=== PATIENT | female | born 1945 | race Caucasian/White ===

== ENCOUNTER → 2021-12-26 | Outpatient (CLI) | payer OTHER ==
[~2021-12-26] MED LIST: ACET-3194 PO; AEC81 PO; CALC-1125 PO; OMEP20CA12 PO; SIMV40TA59 PO; TIMO.5OS OU; TRAM50TA4 PO; VIT1CAPS5 PO; VITA-164 PO
== END | disposition home or self-care (01) ==
LOC: RAH 12:53
PROVIDERS: ATTEND Internal Medicine
DX: M25.571 Pain in right ankle and joints of right foot (principal); M76.811 Anterior tibial syndrome, right leg; R93.6 Abnormal findings on diagnostic imaging of limbs
CPT/HCPCS: 73718; 73721

== ENCOUNTER 2024-06-30 11:42 | Emergency (ER) | payer OTHER ==
[~2024-06-30] VITALS: Ht 160 cm; Wt 70.3 kg
[~2024-06-30 11:42] MED LIST changes: +LEVO750T39 PO; -VITA-164 PO; +VITA-348 PO
[2024-06-30] MEDS ORDERED: LIDOCAINE HCL 1% 20 ML VIAL INJ SCH (12:30)
[2024-06-30] MEDS ORDERED: NEOMY SULF/BACITRA/POLYMYXIN B 1 EACH PACKET TP ONE (12:30)
[2024-06-30] MEDS ORDERED: CEPH500T PO (14:33)
[2024-06-30 15:09] VITALS: BP 127/87; PULSE 80; RESP 16; TEMP 97.8; O2SAT 98
== END 2024-06-30 15:36 | disposition home or self-care (01) ==
LOC: EDH 11:42
DX: S81.812A Laceration without foreign body, left lower leg, initial encounter (principal); Z88.0 Allergy status to penicillin; Z79.82 Long term (current) use of aspirin; Z79.2 Long term (current) use of antibiotics; Z79.899 Other long term (current) drug therapy; Z98.890 Other specified postprocedural states; Z85.3 Personal history of malignant neoplasm of breast; Z98.51 Tubal ligation status; Z90.49 Acquired absence of other specified parts of digestive tract; W22.8XXA Striking against or struck by other objects, initial encounter; Y93.89 Activity, other specified; Y92.89 Other specified places as the place of occurrence of the external cause; Y99.8 Other external cause status
CPT/HCPCS: 12002; 73590

== ENCOUNTER → 2025-05-30 | Outpatient (CLI) | payer OTHER ==
[~2025-05-30] MED LIST changes: -AEC81 PO; -CALC-1125 PO; +CALC1CAP22 PO; +CLOP-31 PO; +IOHEXOL-350 75 ML VIAL IV ONE; +LACT-356 PO; +LATA2.5D7 OP; +LETROZOLE PO; -LEVO750T39 PO; +METO25 PO; +PREG50CA64 PO; +ROSU10TA72 PO; -SIMV40TA59 PO; -TIMO.5OS OU; -TRAM50TA4 PO; +UBID100C45 PO; -VIT1CAPS5 PO; -VITA-348 PO; +VITA1CAP17 PO; +ZOLE5INF IV
--- NOTE | 2025-05-30 16:03 | HMCIMG ---
EXAM: CT Abdomen with IV contrast CLINICAL HISTORY: ABDO PAIN TECHNIQUE: Axial computed tomography images of the abdomen and pelvis with intravenous contrast. CONTRAST: with intravenous contrast. COMPARISON: None provided. FINDINGS: LUNG BASES: The lung bases appear clear. No pleural effusions are seen. LIVER: Unremarkable. GALLBLADDER AND BILE DUCTS: There appears to be mild gallbladder wall thickening. No significant pericholecystic edema or calcified gallstone PANCREAS: Unremarkable. SPLEEN: Unremarkable. ADRENAL GLANDS: Unremarkable. KIDNEYS, URETERS, AND BLADDER: The kidneys appear within normal limits. There is no hydronephrosis or hydroureter. No urinary calculi are seen. STOMACH AND BOWEL: Unremarkable appearance of the stomach and bowel. No evidence of bowel obstruction. No evidence suggesting enteritis or colitis. Small sliding hiatal hernia. Colonic diverticulosis without CT evidence of acute diverticulitis APPENDIX: The appendix is not clearly visible. There are no secondary signs of acute appendicitis PERITONEUM: No free fluid. No free air. LYMPH NODES: No lymphadenopathy is evident. VASCULATURE: No evidence of abdominal aortic aneurysm. BONES: No aggressive appearing osseous lesion. No acute osseous pathology evident. Small mesenteric fat containing ventral wall umbilical hernia IMPRESSION: 1. Mild gallbladder wall thickening without pericholecystic edema. Consider ultrasound the gallbladder for further evaluation 2. Small sliding hiatal hernia. 3. Small umbilical hernia. 4. Colonic diverticulosis without diverticulitis. /[place]
== END | disposition home or self-care (01) ==
LOC: RAH 08:10
PROVIDERS: ATTEND Internal Medicine Gastroenterology
DX: K57.30 Diverticulosis of large intestine without perforation or abscess without bleeding (principal); K44.9 Diaphragmatic hernia without obstruction or gangrene; K42.9 Umbilical hernia without obstruction or gangrene; K82.8 Other specified diseases of gallbladder; R10.9 Unspecified abdominal pain
CPT/HCPCS: 74160; Q9967

== ENCOUNTER → 2025-07-26 | Outpatient (CLI) | payer OTHER ==
[~2025-07-26] MED LIST changes: +GADOTERATE MEGLUMINE 10 MMOL/20 ML VIAL IV ONE; -IOHEXOL-350 75 ML VIAL IV ONE; -ROSU10TA72 PO; +ROSU10TA98 PO
--- NOTE | 2025-07-26 16:17 | HMCIMG ---
EXAM: MR Abdomen with and without Intravenous Contrast. CLINICAL HISTORY: ABD PAIN TECHNIQUE: Multisequence, multiplanar magnetic resonance images of the abdomen with and without intravenous contrast. Series acquired: 4 - COR SSFSE ARC - TR: 676.8 - TE: 89.3 - ET: 1.0 - Thk: 6.0 5 - COR LAVA ARC - TR: 4.3 - TE: 2.0 - ET: 1.0 - Thk: 4.4 7 - AX SSFSE BH ARC - TR: 571.1 - TE: 89.3 - ET: 1.0 - Thk: 6.0 9 - AX 3D DUALECHO BH - TR: 6.5 - TE: 4.2 - ET: 1.0 - Thk: 4.4 10 - AX T2 FRFSE FATSAT JOLENE ARC - TR: 34134.9 - TE: 103.6 - ET: 17.0 - Thk: 6.0 11 - AX DWI B=500 BH - TR: 3400.0 - TE: 59.3 - ET: 1.0 - Thk: 6.0 24 - G+ COR LAVA ARC - TR: 4.3 - TE: 2.0 - ET: 1.0 - Thk: 4.4 2300 - AX LAVA ARC DYNAMIC - TR: 4.4 - TE: 1.9 - ET: 1.0 - Thk: 4.4 2301 - PH1/AX LAVA ARC DYNAMIC - TR: 4.4 - TE: 1.9 - ET: 1.0 - Thk: 4.4 2302 - PH2/AX LAVA ARC DYNAMIC - TR: 4.4 - TE: 1.9 - ET: 1.0 - Thk: 4.4 2303 - PH3/AX LAVA ARC DYNAMIC - TR: 4.4 - TE: 1.9 - ET: 1.0 - Thk: 4.4 2304 - FT: PH1/AX LAVA ARC DYNAMIC - TR: 4.4 - TE: 1.9 - ET: 1.0 - Thk: 20.0 CONTRAST: COMPARISON: None provided. FINDINGS: LOWER THORAX: No pleural effusion. LIVER: Unremarkable. GALLBLADDER AND BILE DUCTS: Gallstones are seen without gallbladder wall inflammation. No biliary distention or common bile duct stones. Common bile duct is 5 mm. No enhancing lesions PANCREAS: Unremarkable. No ductal dilation. SPLEEN: Unremarkable. ADRENALS: Unremarkable. KIDNEYS: The kidneys appear within normal limits. No hydronephrosis or mass evident. STOMACH AND BOWEL: Limited evaluation of the stomach and bowel demonstrates no acute process. LYMPH NODES: No lymphadenopathy is evident. VASCULATURE: No abdominal aortic aneurysm. IMPRESSION: No acute intra-abdominal abnormality. Cholelithiasis. /[place]
--- NOTE | 2025-07-27 13:22 | HMCIMG ---
EXAM: MR Pelvis with and without Intravenous Contrast CLINICAL HISTORY: Patient presents with abdominal pain. TECHNIQUE: Multisequence, multiplanar magnetic resonance images of the pelvis were obtained with and without intravenous contrast. CONTRAST: Intravenous contrast. COMPARISON: CT abdomen and pelvis on 09/21/2023. FINDINGS: BOWEL: Grossly unremarkable. Limited evaluation of the stomach and bowel demonstrates no acute process. BLADDER: Sub optimally distended with normal wall thickness. No stone. REPRODUCTIVE: Retroverted uterus. Few subcentimetric cervical Nabothian cysts. Otherwise unremarkable as visualized. LYMPH NODES: No lymphadenopathy. BONES: No acute fracture or aggressive osseous lesion. SOFT TISSUE: Small fat-containing umbilical hernia. Intramuscular fluid adjacent to the bilateral greater trochanters, more pronounced on the right. IMPRESSION: Interval new fluid in the proximal right lateral thigh adjacent to the greater trochanter with surrounding edematous changes. This may represent bursitis, but infection cannot be excluded. Small fat-containing umbilical hernia. Uncomplicated colonic diverticula. Retroverted uterus with few subcentimetric cervical Nabothian cysts. /[place]
== END | disposition home or self-care (01) ==
LOC: RAH 07:33
PROVIDERS: ATTEND Internal Medicine Gastroenterology
DX: K80.20 Calculus of gallbladder without cholecystitis without obstruction (principal); K42.9 Umbilical hernia without obstruction or gangrene; K57.30 Diverticulosis of large intestine without perforation or abscess without bleeding; N88.8 Other specified noninflammatory disorders of cervix uteri; R10.9 Unspecified abdominal pain; R60.1 Generalized edema
CPT/HCPCS: 74183; 72197; A9575